=== PATIENT | female | born 1930 | race Caucasian/White ===

== ENCOUNTER 2017-05-14 23:04 | Emergency (ER) | payer MEDICARE ==
[~2017-05-14] VITALS: Ht 160 cm; Wt 50.0 kg
[~2017-05-14 23:04] MED LIST: BACT800T5 PO; COLY4000S PO; LEVO75TA42 PO; LORA1TAB PO; OMEP20TA PO; RYTH150T PO; SIMV20TA PO
[2017-05-14 23:07] VITALS: BP 186/90; PULSE 76; RESP 18; O2SAT 99
[2017-05-14] MEDS ORDERED: LORazepam 2 MG/ML VIAL IV PUSH ONE (23:30)
[2017-05-14] MEDS ORDERED: SODIUM CHLORIDE 0.9% FLUSH 10 ML FLUSH IVF PRN (23:30)
--- NOTE | 2017-05-14 23:41 | RADRPT ---
EXAM DATE/TIME: 05/14/2017 23:23 [place] COMPARISON: No previous studies available for comparison. INDICATIONS : Shortness of breath. MEDICAL HISTORY : Hypertension. A-fib. SURGICAL HISTORY : Hysterectomy. ENCOUNTER: Initial ACUITY: 1 day PAIN SCORE: 0/10 LOCATION: Bilateral chest FINDINGS: A single view of the chest demonstrates the lungs to be symmetrically aerated without evidence of mas s, infiltrate or effusion. The cardiomediastinal contours are unremarkable. Osseous structures are intact. There are multiple overlying electrocardiogram leads. CONCLUSION: No acute disease. Jose Cedeno MD on May 14, 2017 at 23:39 Board Certified Radiologist. This report was verified electronically.
[2017-05-14 23:46] LABS: AUTOMATED NEUTROPHIL # 2.9 TH/MM3 (1.8-7.7); BASOPHIL % 0.3 % (0.0-2.0); EOSINOPHIL # 0.1 TH/MM3 (0-0.4); EOSINOPHIL % 2.4 % (0.0-4.0); HEMATOCRIT 37.3 % (35.0-46.0); HEMOGLOBIN 12.8 GM/DL (11.6-15.3); LYMPH % 23.1 % (9.0-44.0); MEAN CORPUSCULAR HEMOGLOBIN 33.4 PG (27.0-34.0); MEAN CORPUSCULAR HGB CONC 34.4 % (32.0-36.0); MEAN PLATELET VOLUME 8.6 FL (7.0-11.0); MONO % 8.2 % (0.0-8.0); MONOCYTE # 0.4 TH/MM3 (0-0.9); PLATELET COUNT 148 TH/MM3 (150-450); RED BLOOD COUNT 3.84 MIL/MM3 (4.00-5.30); RED CELL DISTRIBUTION WIDTH 14.2 % (11.6-17.2); WHITE BLOOD COUNT 4.4 TH/MM3 (4.0-11.0)
[2017-05-14 23:59] LABS: BLOOD UREA NITROGEN 16 MG/DL (7-18); CALCIUM 8.5 MG/DL (8.5-10.1); CHLORIDE 105 MEQ/L (98-107); CREATININE 1.22 MG/DL (0.50-1.00); GLOMERULAR FILTRATION RATE 42 ML/MIN (>89); GLUCOSE,RANDOM 101 MG/DL (74-106); SODIUM (NA) 142 MEQ/L (136-145)
--- NOTE | 2017-05-15 | PD ---
HPI . Chest pain and shortness of breath Chief Complaint: Cardiac Complaint Time Seen by Provider: 23:16 Travel History International Travel<30 days: No Contact w/Intl Traveler<30days: No Traveled to known affect area: No History of Present Illness HPI This patient presented to us via [facility] with chief complaint of chest pain and shortness of breath. Onset was shortly prior to presentation. The patient reports she was eating supper. She suddenly felt very nauseous. At about that same time, she had the chest pain and shortness of breath. She then vomited. [facility] called and she was brought to the hospital. She was given Zofran in route and her nausea is relieved. She was also given aspirin by [facility]. Patient is feeling much better at this time. [facility] Past Medical History Atrial Fibrillation: Yes Anxiety: Yes Heart Rhythm Problems: Yes (FAST HEART RATE) High Cholesterol: Yes Diminished Hearing: No GERD: Yes Hypertension: Yes Musculoskeletal: Yes (CHRONIC BACK PAIN) Neurologic: Yes (PERIPHERAL NEUROPATHY) Thyroid Disease: Yes (HYPO) ?: Not Menopausal: Yes Past Surgical History Hysterectomy: Yes Social History Alcohol Use: No Tobacco Use: No Substance Use: No Allergies-Medications (Allergen,Severity, Reaction): Coded Allergies: naproxen (Unverified Allergy, Unknown, Hives, 05/14/17) Reported Meds & Prescriptions Reported Meds & Active Scripts Active Golytely (Polyethylene Glycol/Electrolytes) 4,000 Ml Soln 4,000 Ml PO DIRECTED Reported Lorazepam 1 Mg Tab 1 Mg PO HS Bactrim DS (Sulfamethoxazole-Trimethoprim DS) 1 Tab Tab 1 Tab PO BID Propafenone Hcl (Propafenone HCl) 150 Mg Tab 150 Mg PO TID Omeprazole 20 mg (Omeprazole) 20 Mg Tab 40 Mg PO DAILY Levoxyl (Levothyroxine Sodium) 75 Mcg Tab 112 Mcg PO DAILY Simvastatin 20 Mg Tab 20 Mg PO TID Review of Systems Except as stated in HPI: all other systems reviewed are Neg General / Constitutional: No: Fever, Chills Cardiovascular: Positive: Chest Pain or Discomfort Respiratory: Positive: Shortness of Breath Gastrointestinal: Positive: Nausea, Vomiting Physical Exam Narrative GENERAL: Elderly female who is in no acute distress. SKIN: warm/dry. HEAD: Normocephalic. Atraumatic. EYES: Pupils equal and round. No scleral icterus. No injection or drainage. ENT: No nasal bleeding or discharge. Mucous membranes pink and moist. NECK: Trachea midline. Full range of motion without pain.. CARDIOVASCULAR: Regular rate and rhythm. Heart sounds are normal. RESPIRATORY: No accessory muscle use. Clear to auscultation. Breath sounds equal bilaterally. GASTROINTESTINAL: Abdomen soft. Nontender. Bowel sounds present. Nondistended. MUSCULOSKELETAL: No obvious deformities. NEUROLOGICAL: Awake and alert. No obvious cranial nerve deficits. Motor grossly within normal limits. Normal speech. PSYCHIATRIC: Appropriate mood and affect; insight and judgment normal. Data Data Last Documented VS Vital Signs Date Time Temp Pulse Resp B/P (MAP) Pulse Ox O2 Delivery O2 Flow Rate FiO2 05/14/17 23:07 76 18 186/90 (122) 99 Orders Orders Electrocardiogram (05/14/17 23:16) Basic Metabolic Panel (Bmp) (05/14/17 23:16) Complete Blood Count With Diff (05/14/17 23:16) Magnesium (Mg) (05/14/17 23:16) Troponin I (05/14/17 23:16) Chest, Single Ap (05/14/17 23:16) Ecg Monitoring (05/14/17 23:16) Iv Access Insert/Monitor (05/14/17 23:16) Oximetry (05/14/17 23:16) Sodium Chloride 0.9% Flush (Ns Flush) (05/14/17 23:30) Lorazepam Inj (Ativan Inj) (05/14/17 23:30) Labs Laboratory Tests Test 05/14/17 23:20 White Blood Count 4.4 TH/MM3 Red Blood Count 3.84 MIL/MM3 Hemoglobin 12.8 GM/DL Hematocrit 37.3 % Mean Corpuscular Volume 97.0 FL Mean Corpuscular Hemoglobin 33.4 PG Mean Corpuscular Hemoglobin Concent 34.4 % Red Cell Distribution Width 14.2 % Platelet Count 148 TH/MM3 Mean Platelet Volume 8.6 FL Neutrophils (%) (Auto) 66.0 % Lymphocytes (%) (Auto) 23.1 % Monocytes (%) (Auto) 8.2 % Eosinophils (%) (Auto) 2.4 % Basophils (%) (Auto) 0.3 % Neutrophils # (Auto) 2.9 TH/MM3 Lymphocytes # (Auto) 1.0 TH/MM3 Monocytes # (Auto) 0.4 TH/MM3 Eosinophils # (Auto) 0.1 TH/MM3 Basophils # (Auto) 0.0 TH/MM3 CBC Comment DIFF FINAL Differential Comment Blood Urea Nitrogen 16 MG/DL Creatinine 1.22 MG/DL Random Glucose 101 MG/DL Calcium Level 8.5 MG/DL Magnesium Level 2.0 MG/DL Sodium Level 142 MEQ/L Potassium Level 3.5 MEQ/L Chloride Level 105 MEQ/L Carbon Dioxide Level 28.0 MEQ/L Anion Gap 9 MEQ/L Estimat Glomerular Filtration Rate 42 ML/MIN Troponin I LESS THAN 0.02 NG/ML MDM Medical Decision Making Medical Screen Exam Complete: Yes Emergency Medical Condition: Yes Interpretation(s) EKG shows a sinus rhythm with a rate of 56. There is a lot of artifact. Her most recent EKG was in 2011. I do not see much difference between that EKG and today's. Differential Diagnosis Differential diagnosis of chest pain includes but is not limited to musculoskeletal pain, pulmonary embolism, acute coronary syndrome, pneumonia, pleurisy Narrative Course This patient presents with chest pain, shortness of breath, nausea followed by vomiting. This all occurred after eating. She was treated en route with Zofran and feels better. CBC & BMP Diagram 05/14/17 23:20 Calcium Level 8.5, Magnesium Level 2.0 trop < 0.02 This patient has been fine since she got here. The Zofran given by EMS seems to have treated her problem. She will be discharged to home. Diagnosis Primary Impression: Nausea and vomiting Qualified Codes: R11.2 - Nausea with vomiting, unspecified Additional Impressions: Chest pain Qualified Codes: R07.9 - Chest pain, unspecified Shortness of breath Patient Instructions: Acute Nausea and Vomiting (DC), General Instructions Disposition: 01 DISCHARGE HOME Condition: Stable Tonya Plaza MD May 14, 2017 23:59
[2017-05-15 00:02] LABS: TROPONIN I LESS THAN 0.02 NG/ML (0.02-0.05)
--- NOTE | 2017-05-15 19:57 | EKG ---
Date Performed: 05/14/2017 Time Performed: 23:08:55 PTAGE: 86 years EKG: SINUS BRADYCARDIA MODERATE ST DEPRESSION PROLONGED QT INTERVAL ABNORMAL ECG Since the PREVIOUS TRACING , no significant change noted PREVIOUS TRACIN03/01/2011 09.25 DOCTOR: Jaye Hayden Interpretating Date/Time 05/15/2017 19:56:30
== END 2017-05-15 00:55 | disposition home or self-care (01) ==
LOC: NEPC 23:04
DX: R11.2 Nausea with vomiting, unspecified (principal); R07.9 Chest pain, unspecified; R06.02 Shortness of breath; I48.91 Unspecified atrial fibrillation; F41.9 Anxiety disorder, unspecified; E78.00 Pure hypercholesterolemia, unspecified; I10 Essential (primary) hypertension; K21.9 Gastro-esophageal reflux disease without esophagitis; E03.9 Hypothyroidism, unspecified
CPT/HCPCS: 71045; 80048; 83735; 84484; 85025; 93005